=== PATIENT | male | born 1975 | race Caucasian/White ===

== ENCOUNTER → 2023-09-15 | Outpatient (CLI) | payer BC ==
[2023-11-06 11:03] LABS: BASO # 0.01 K/mm3 (0.02-0.10); EOS # 0.05 K/mm3 (0.04-0.40); EOS % 1.3 % (0.0-4.0); HEMATOCRIT 37.5 % (42.0-52.0); HEMOGLOBIN 11.9 g/dL (13.5-18.0); LYMPH# 0.77 K/mm3 (1.50-4.00); MEAN CELL VOLUME 91 fl (78-100); MEAN CORPUSCULAR HEMOGLOBIN 29 pg (27-31); MEAN CORPUSCULAR HGB CONC 32 g/dL (33-37); MEAN PLATELET VOLUME 10.4 fl (7.4-10.4); MONO # 0.35 K/mm3 (0.20-0.80); NEU # 2.64 K/mm3 (1.40-6.50); PLATELET COUNT 200 K/mm3 (130-400); RED BLOOD COUNT 4.12 M/mm3 (4.20-5.60); WHITE BLOOD COUNT 3.8 K/mm3 (4.8-10.8)
[2023-11-06 11:08] LABS: ALBUMIN 3.7 g/dL (3.5-5.0); CALCIUM 8.9 mg/dL (8.3-10.5); MAGNESIUM 1.75 mg/dL (1.60-2.60); TOTAL BILIRUBIN 0.6 mg/dL (0.2-1.2); TOTAL PROTEIN 7.3 g/dL (6.4-8.3)
== END ==
LOC: LAB 10:39
PROVIDERS: Nurse Practitioner Family
DX: R53.83 Other fatigue (principal); R43.8 Other disturbances of smell and taste

== ENCOUNTER → 2023-09-24 | Outpatient (REF) | payer BC ==
[2023-11-12 09:38] LABS: FOLATE (FOLIC ACID) 5.8; HEPATITIS C VIRUS ANTIBODY NON REACTIVE; METHYLMALONIC ACID, SERUM 169
[2023-11-14 11:33] LABS: HOMOCYSTEINE SERUM OR PLASMA 19.8
== END ==
LOC: LAB 11:59
PROVIDERS: Family Medicine
DX: Z11.4 Encounter for screening for human immunodeficiency virus [HIV] (principal); Z11.59 Encounter for screening for other viral diseases; Z13.220 Encounter for screening for lipoid disorders; D53.9 Nutritional anemia, unspecified

== ENCOUNTER → 2024-01-28 | Day surgery (SDC) | payer BC ==
[~2024-01-28] MED LIST: Lidocaine PF 2% (20 MG/ML) 5 ML VIAL ONE
== END | disposition home or self-care (01) ==
LOC: MSO 02:32
DX: Z12.11 Encounter for screening for malignant neoplasm of colon (principal); D12.4 Benign neoplasm of descending colon; K63.5 Polyp of colon; Z87.891 Personal history of nicotine dependence
CPT/HCPCS: 00812; J2704; J7120